=== PATIENT | male | born 1950 ===

== ENCOUNTER 2024-11-04 05:17 | Day surgery (SDC) | payer OTHER ==
[2024-10-29 15:08] VITALS: BP 158/76
[~2024-11-04] VITALS: Ht 170.2 cm; Wt 73.9 kg
[~2024-11-04 05:17] MED LIST: ACTOS15 MG PO; AMLODIPINE BESY10 MG PO; DOXAZOSIN MESYLA4 MG PO; IRBESARTAN-HCT1 EACH PO; METFORMIN HCL500 M3 PO; MULTI-VITAMIN1 EACH PO; PRAVASTATIN SOD20 MG PO
[2024-11-04] MEDS ORDERED: CEFAZOLIN SODIUM 1,000 MG VIAL ONE (06:21)
[2024-11-04] MEDS ORDERED: BUPIVACAINE HCL/MPF 0.5% 30ML VIAL ONE (07:17)
[2024-11-04] MEDS ORDERED: LIDOCAINE HCL 1%/EPINEPHRINE 20ML VIAL IJ ONE (07:24)
== END 2024-11-04 10:35 | disposition home or self-care (01) ==
LOC: CIR.AMB 05:17
PROVIDERS: ATTEND Surgery Surgery of the Hand
DX: M65.841 Other synovitis and tenosynovitis, right hand (principal)